=== PATIENT | male | born 1940 | race Caucasian/White ===

== ENCOUNTER → 2017-06-24 14:41 | Outpatient (CLI) | payer MEDICARE, SELFPAY ==
--- NOTE | 2017-06-24 14:43 | RAD_ITS ---
STUDY: X-RAY - ABDOMEN/PELVIS REASON FOR EXAM: Male, 76 years old. Right side, mid abdominal pain history of stones TECHNIQUE: Two AP supine views of the abdomen and pelvis. COMPARISON: None. FINDINGS: The bases of the lungs are out of the [id number]. There is an unremarkable bowel gas pattern. There is no demonstrated free abdominal air. Liver spleen and kidneys are mostly obscured by overlying bowel gas. Allowing for this and may be a 6.8 mm stone in the upper aspect of the left kidney. There is a 2 mm stone overlying the right side of the bladder. Normal soft tissue structures. There is degenerative change with osteophytosis in the hip joints with mild narrowing. There is mild degenerative change of the lumbar spine. RAD/Abdomen Single View IMPRESSION: Limited study. The kidneys are not well visualized due to overlying bowel gas. There is questionable ovoid 6.8 mm stone overlying the left kidney. Recommend correlation with renal colic. 2 mm stone overlying the right side of the bladder which may represent phlebolith versus distal ureteral stone. Electronically Signed: Yodit Grajeda MD at 14:43 EDT Tel , Service support ,
== END ==
PROVIDERS: Family Provider Family Medicine; PCP Family Medicine; Visit Provider Urology
DX: N20.0 Calculus of kidney (principal)
CPT/HCPCS: 74018

== ENCOUNTER → 2017-06-24 18:54 | Outpatient (CLI) | payer MEDICARE, SELFPAY ==
[2017-07-05 20:07] LABS: Ca Oxalate, Monohydrate 97 % (.); Size 6x3x2 mm (.)
== END ==
PROVIDERS: Family Provider Family Medicine; PCP Family Medicine; Visit Provider Urology
DX: N20.0 Calculus of kidney (principal)
CPT/HCPCS: 74018; 82360

== ENCOUNTER → 2017-08-03 14:17 | Outpatient (CLI) | payer MEDICARE, SELFPAY ==
[2017-08-03 15:33] LABS: Hematocrit 46.3 % (40-54); Hemoglobin 15.4 g/dl (13.0-16.5); Mean Corp Hgb Conc 33.3 g/gl (32-36); Mean Corpuscular Hgb 29.4 pg (27.0-32.0); Mean Corpuscular Volume 88.5 fL (80-94); Platelet Count 204 K/mm3 (150-450); RBC Distribution Width CV 13.2 % (11.6-14.6); RBC Distribution Width SD 42.7 fl (35.1-43.9); Red Blood Count 5.23 M/mm3 (4.6-6.2); White Blood Count 7.6 K/mm3 (4.4-11.0)
[2017-08-03 15:38] LABS: Scan Indicated on CBC? Y/N NO
[2017-08-03 16:28] LABS: Free T3 2.5 pg/mL (2.18-3.98); T4 Free Direct 1.19 ng/dL (0.76-1.46); Thyroid Stim Hormone (TSH) 0.41 uIU/mL (0.358-3.74)
[2017-08-04 08:41] LABS: Vitamin B12 313 pg/mL (211-911); Vitamin D,25 Hydroxy 13.6 ng/mL (29.95-100.01)
== END ==
PROVIDERS: Family Provider Family Medicine; PCP Family Medicine; Visit Provider Psychiatry & Neurology Psychiatry
DX: E03.9 Hypothyroidism, unspecified (principal); Z51.81 Encounter for therapeutic drug level monitoring
CPT/HCPCS: 36415; 80335; 82306; 82607; 82746; 84439; 84443; 84481; 85027

== ENCOUNTER → 2019-08-29 11:06 | Outpatient (CLI) | payer MEDICARE, SELFPAY ==
--- NOTE | 2019-08-29 11:25 | RAD_ITS ---
STUDY: X-RAY - LUMBAR SPINE REASON FOR EXAM: Male, 78 years old. Pain, stiffness TECHNIQUE: By view(s) of the lumbar spine were obtained. COMPARISON: None FINDINGS: Normal lumbar lordosis. There is no substantial scoliosis. There is a normal alignment of the vertebrae. There is multilevel endplate spondylosis of the lumbar vertebrae. There is multi-level degenerative disc disease with multi-level disc space narrowing. There is no demonstrated fracture. There is atherosclerotic calcification of the abdominal aorta without a demonstrated aneurysm. RAD/Lumbar Spine 2 or 3 Views IMPRESSION: Degenerative changes of the spine, as detailed above. Electronically Signed: Shantanu Davidson MD at 11:41 EDT , Service support ,
== END ==
PROVIDERS: PCP Family Medicine; Referring Provider Chiropractor; Visit Provider Chiropractor
DX: S33.5XXA Sprain of ligaments of lumbar spine, initial encounter (principal)
CPT/HCPCS: 72100

== ENCOUNTER 2020-03-22 10:00 | Outpatient (RCR) | payer MEDICARE, SELFPAY ==
--- NOTE | 2020-01-09 13:18 | HP.PTEVAL_ITS ---
Patient's Visit Information SARA BROWN is a 79 year old M referred to Physical Therapy by Dr. Emory Poole III, MD with a diagnosis of LBP. Date of Evaluation: 01/09/20 Physical Therapist: Charly Hodgson, PT, ATC - Visit Plan Frequency: 2x /Week Duration: 1 Week Plan: Issue and instruct pt on HEP of core stab ex's - Subjective Pt reports he has had LBP intermittently for years. Pt reports his pain progressively worsened over the last for months. Pt notes his pain comes and goes depending on whether he is active or not such as when he gardens and yardwork. Pt notes his pain is the absolute worst when he is golfing. Pt denies tingling or numbness in his LE's this date.No sleep difficulty at this time secondary to pain. Pt reports prolonged standing and walking increases his pain. Pt notes sitting will decrease his pain. 2/10 pain at rest, 10/10 pain at worst (when he golfs) - Pain LBP Pain Intensity (Out of 10): 2 Pain Intensity Range: 10 - Objective Neuro: B LE sensation is WNL to light touch. MMT: B LE's are grossly 5/5 throughout. ROM: Pt is moderately limited with extension, L and R SB. flexion is minimally limited. Repeated movements: SKTC/DKTC decreased LBP - Goals Goal 1:: I with HEP Goal Time Frame: 2 Weeks - Rehabilitation Potential Physical Therapy Diagnosis: Pt has LBP, limited L/S ROM, and difficulty with prolonged ambulation secondary to degenerative changes in the L/S Rehabilitation Potential: Good - Anticipated Interventions Patient/Client Instruction: Educate patient on: Condition, Plan of Care For the Purpose of:: To improve self management Therapeutic Exercise to Include: Strength training, Endurance training, Balance training, Postural training, Flexibilty training, Dynamic Lumbar Stabilization For the Purpose of:: To decrease pain, To increase ROM, To improve muscle performance and motor function Thank you for the opportunity to evaluate your patient. For Medicare and Medicare HMO plans, please review the plan of care and approve it. It will need to be FAXED BACK to us at [phone] for Medicare purposes. For Medicare only, by signing this I certify the plan of care. Please let me know if there are questions or concerns regarding this plan of care. Physician Signature: Date:
--- NOTE | 2020-03-22 10:41 | HP.PTDCSUM ---
It has been my pleasure to treat SARA BROWN referred by Dr. Emory Poole III, MD, with the diagnosis of LBP for a total of 5 visit(s). Discharge Date: Please see the following information for a summary of their discharge status. Subjective: Pt reports no pain today unless he extends L/S LBP Pain Intensity (Out of 10): 0 % Improvement: 60 Objective/Function: Pt reports he is 60% better. His L/S ROM is still moderately limited and provokes significant pain. All other ROM is WNL. Pt is I with HEP and will cont with that workout. Rx goals achieved Goal 1:: I with HEP Goal Progress: Goal Met Plan: Discharge If there are questions or concerns regarding this patient's physical therapy, please feel free to call me at [phone]. Thank you for the referral of this patient. Sincerely, Charly Hodgson, PT, ATC
== END 2020-03-22 19:00 | disposition home or self-care (01) ==
LOC: PT 10:00
PROVIDERS: PCP Family Medicine; Visit Provider Family Medicine
DX: M54.41 Lumbago with sciatica, right side (principal)
CPT/HCPCS: 97110; 97161; 97164; 97530

== ENCOUNTER → 2020-06-21 17:21 | Outpatient (CLI) | payer MEDICARE, SELFPAY ==
--- NOTE | 2020-06-21 17:23 | MRI_ITS ---
HISTORY: Back pain. Right leg pain. SI joint pain when walks symptoms ongoing for 6 months. Patient's pain is dull. Occasionally the pain is sharp. Technique: Sagittal T1-T2 and STIR axial T1 and T2-weighted images were obtained through the lumbar spine. Comparison x-rays of lumbar spine are available from August 29, 2019. Findings: 118 images: Minimal degenerative malalignment. Vertebral body height is normal. Marrow signal demonstrates heterogeneous fatty infiltration. Discs at the L2-L3, L3-L4, L4-L5, and L5-S1 levels are desiccated with some minimal loss of height. The abdominal aorta is without aneurysm. The IVC appears normal. Parapelvic left renal cysts. No hydronephrosis. Some fatty infiltration of the paraspinous musculature. At the L2-L3 level facet arthropathy, ligamentous thickening, and disc bulge contribute to moderate spinal canal stenosis. At the L3-L4 level facet arthropathy and ligamentum thickening and disc bulge cause mild spinal canal stenosis. At the L4-L5 level facet arthropathy, ligamentum thickening, and disc bulge cause mild spinal canal stenosis. At the L5-S1 level facet arthropathy is mild. Low Ligamentous thickening is minimal. Disc bulges very small. The spinal canal is widely patent. The conus medullaris is at the T12-L1 interspace. Visualized portions of the cord are normal. Neural foraminal stenosis is present at the L2-L3 through L5-S1 level. This disease appears to be slightly more severe on the right than left, but I do not perceive a significant scoliosis. MRI/Spine Lumbar (Routine) IMPRESSION: Multilevel degenerative disc disease. This disc disease with facet arthropathy, ligamentous thickening, and enthesophytes cause cause [id number] spinal canal stenosis. A stenosis is greatest at the L2-L3 level where most of the CSF is displaced from the dural sac. Neural foraminal stenosis is present throughout the lumbar spine. This is perhaps causing neural impingement within the infraclavicular region on the right at the L2-L3 L4-L5 and L5-S1 levels. On the left is needed present at the L4-L5 level. at 2249 Reported and signed by: Andre Heart MD Electronically Signed: Andre Heart MD at 22:47 EDT Tel , Service support ,
== END ==
PROVIDERS: PCP Family Medicine; Referring Provider Anesthesiology Pain Medicine; Visit Provider Anesthesiology Pain Medicine
DX: M54.9 Dorsalgia, unspecified (principal); M79.604 Pain in right leg
CPT/HCPCS: 72148

== ENCOUNTER → 2020-08-15 12:09 | Outpatient (CLI) | payer MEDICARE, SELFPAY ==
[2020-08-15 15:41] LABS: Free T3 2.5 pg/mL (2.18-3.98); Thyroid Stim Hormone (TSH) 0.11 uIU/mL (0.358-3.74)
[2020-08-20 08:23] LABS: Nortriptyline Level 20 ng/mL (50-150)
== END ==
PROVIDERS: PCP Family Medicine; Referring Provider Psychiatry & Neurology Psychiatry; Visit Provider Psychiatry & Neurology Psychiatry
DX: E03.9 Hypothyroidism, unspecified (principal); Z51.81 Encounter for therapeutic drug level monitoring
CPT/HCPCS: 36415; 80335; 84439; 84443; 84481

== ENCOUNTER → 2022-06-12 | Outpatient (CLI) | payer MEDICARE, SELFPAY ==
--- NOTE | 2022-06-12 16:00 | MRI_ITS ---
INDICATION: TINNITUS EXAMINATION: MRI - MR Brain WO/W Contrast TECHNIQUE: Multiplanar and multisequence MR images of the brain were obtained without and with gadolinium. IV Contrast Dosage and Agent: None. COMPARISON: MRI brain February 06, 2016. FINDINGS: INTERNAL AUDITORY CANALS: Left internal auditory canal 2.3 x 6.1 mm enhancing intermediate T2 and T1 mass similar to February 06, 2016 4.8 x 7.2 mm mass. No enhancing mass or abnormality seen along the right internal auditory canal.. BRAIN PARENCHYMA: Normal midline developmental anatomy. No Chiari malformation. Unremarkable sella. Moderate periventricular and subcortical T2 hyperintense chronic small vessel white matter ischemic change. No diffusion restriction. No evidence of prior hemorrhage. No evidence of additional intracranial mass or abnormal parenchymal or meningeal enhancement.. CSF SPACES: Appropriate for age. No hydrocephalus. Basal cisterns are patent. VASCULAR SYSTEM: Nonspecific absence of the right vertebral artery flow void. Normal left vertebral artery circulation flow voids.. CALVARIUM, SKULL BASE, PARANASAL SINUSES AND MASTOID AIR CELLS: Mild ethmoid and maxillary sinus disease.. Diffuse extensive mastoid air cell fluid. Diffuse left middle ear fluid. ORBITS: Both globes, extraocular muscles, optic nerves and retrobulbar fat appear unremarkable. 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 No evidence of enlarging mass or further interval expansion of left internal auditory canal. New diffuse bilateral mastoid air cells opacification and left middle ear opacification concerning for mastoiditis and left otitis media. Mild sinus disease. Electronically Signed: Xander Becerra MD at 5:08 EDT ,
[2022-06-12 16:21] LABS: CREATININE FINGERSTICK < 0.9 mg/dL (0.70-1.30); EGFR FINGERSTICK > 60.0000 mL/min (>60)
== END | disposition home or self-care (01) ==
LOC: MRI 15:43
PROVIDERS: Referring Provider Otolaryngology; Visit Provider Otolaryngology
DX: D33.0 Benign neoplasm of brain, supratentorial (principal); H90.3 Sensorineural hearing loss, bilateral; R42 Dizziness and giddiness
CPT/HCPCS: 70553; A9575

== ENCOUNTER → 2022-09-15 | Outpatient (CLI) | payer MEDICARE, SELFPAY ==
[2022-09-15 12:48] LABS: Free T3 2.3 pg/mL (2.18-3.98); T4 Free Direct 1.15 ng/dL (0.76-1.46); Thyroid Stim Hormone (TSH) 0.12 uIU/mL (0.358-3.74)
[2022-09-18 00:07] LABS: Nortriptyline Level < 20 ng/mL (50-150)
== END | disposition home or self-care (01) ==
LOC: MTLAB 10:51
PROVIDERS: PCP Family Medicine; Referring Provider Psychiatry & Neurology Psychiatry; Visit Provider Psychiatry & Neurology Psychiatry
DX: E03.9 Hypothyroidism, unspecified (principal)
CPT/HCPCS: 36415; 80335; 84439; 84443; 84481

== ENCOUNTER → 2023-09-22 | Outpatient (CLI) | payer MEDICARE, SELFPAY ==
--- NOTE | 2023-09-22 12:49 | MRI_ITS ---
STUDY: MRI LUMBAR SPINE WITHOUT CONTRAST REASON FOR EXAM: Male, 82 years old. LUMBAR RADICULOPATHY INTO R GLUTE TECHNIQUE: Standardized fat and water weighted pulse sequences were obtained in the sagittal and axial planes. COMPARISON: None FINDINGS: T12-L1: Normal endplates. Normal disc height, hydration and morphology. Normal bilateral facet joints. Normal central canal and bilateral lateral recesses. Normal bilateral intervertebral neural foramina. Normal lumbar lordosis. There is no substantial scoliosis. Normal conus medullaris that terminates at the L1. L1-2: Normal endplates. Normal disc height, hydration and morphology. Normal bilateral facet joints. Normal central canal and bilateral lateral recesses. Normal bilateral intervertebral neural foramina. L2-3: Mild bilateral facet hypertrophy and moderate ligament flavum hypertrophy. Moderate bilobed disc protrusion produces moderate spinal stenosis with moderate bilateral lateral recess stenosis with abutment of the L3 nerve roots bilaterally and moderate bilateral neural foraminal stenosis L3-4: Mild bilateral facet hypertrophy and moderate ligament flavum hypertrophy. Moderate broad disc protrusion reduces moderate spinal stenosis with moderate bilateral lateral recess stenosis with abutment of the L4 nerve roots bilaterally and moderate bilateral neural foraminal stenosis. L4-5: Moderate bilateral facet hypertrophy and ligament flavum hypertrophy. Mild broad disc protrusion produces moderate spinal stenosis with moderate bilateral lateral recess stenosis with abutment of the L5 nerve roots bilaterally and mild bilateral neural foraminal stenosis. L5-S1: Mild bilateral facet hypertrophy and ligament flavum hypertrophy. Mild broad disc protrusion produce mild spinal stenosis and mild bilateral neural foraminal stenosis. Normal visualized sacral ala. Mild friction related edema in the posterior subcutaneous fat. MRI/Spine Lumbar (Routine) IMPRESSION: Multilevel degenerative changes, as described above. Electronically Signed: Theron Hinkle MD at 16:04 EDT ,
== END | disposition home or self-care (01) ==
LOC: MRI 12:45
PROVIDERS: PCP Family Medicine; Referring Provider Anesthesiology Pain Medicine; Visit Provider Anesthesiology Pain Medicine
DX: M54.16 Radiculopathy, lumbar region (principal)
CPT/HCPCS: 72148